=== PATIENT | female | born 1935 | race Caucasian/White ===

== ENCOUNTER → 2021-06-02 13:01 | Outpatient (CLI) | payer MEDICARE, OTHER, SELFPAY ==
--- NOTE | ~2021-06-02 | MR_ITS ---
EXAMINATION: MR lumbar spine wo con DATE: 06/02/2021 13:45 INDICATION: Low back pain TECHNIQUE: Magnetic resonance imaging (MRI) of the lumbar spine was performed without intravenous con trast. Sequences included sagittal T2-weighted FSE, sagittal T2-weighted FS FSE, sagittal T1-weighted FSE, and axial T2-weighted FSE. 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 12 degree lumbar dextroscoliosis. There is approximately 7 mm right l ateral listhesis and 2 mm retrolisthesis of L3 on L4. Vertebral body heights are normal. Severe disc height loss with fibrovascular degenerative endplate changes at L2-L3 and L3-L4. Disc desiccation and mild disc height loss at T11-T12 and T12-L1. Additional mild disc height loss at L4-L5. L5-S1 disc s pace is likely developmentally small with normal signal. 7 mm low signal intensity likely bone island at L2. Marrow signal is otherwise unremarkable. The conus medullaris terminates at the cephalad aspe ct of L2. There is normal signal in the caudal spinal cord. Paravertebral soft tissues are unremarkab le. The following disc levels are specifically discussed: T11-T12: The disc does not extend beyond the endplate margin. There is mild left and moderate right f acet joint osteoarthritis. There is no neural foraminal stenosis. There is no central canal stenosis. T12-L1: The disc does not extend beyond the endplate margin. There is altered left and moderate right facet joint osteoarthritis. There is no neural foraminal stenosis. There is no central canal stenosi s. L1-L2: Mild diffuse disc bulge There is moderate bilateral facet joint osteoarthritis. There is mild left neural foraminal stenosis. There is mild central canal stenosis. L2-L3: Disc is bulging. There is moderate left and severe right facet joint osteoarthritis. There is mild right and moderate left neural foraminal stenosis. There is moderate central canal stenosis. L3-L4: Disc is bulging. There is hypertrophy of the ligamentum flavum. There is mild to moderate lef t and moderate right facet joint osteoarthritis. There is moderate bilateral neural foraminal stenosi s. There is mild central canal stenosis. L4-L5: Disc is mildly bulging. There is hypertrophy of the ligamentum flavum. There is severe bilate ral facet joint osteoarthritis. There is mild bilateral neural foraminal stenosis. There is mild cent ral canal stenosis. L5-S1: The disc does not extend beyond the endplate margin. There is mild to moderate bilateral facet joint osteoarthritis. There is no neural foraminal stenosis. There is no central canal stenosis. IMPRESSION: 1. Transitional thoracolumbar and lumbosacral segments as detailed above. 2. Mild lumbar dextroscoliosis with severe spondylosis. Reviewed, dictated and finalized at location A.
== END ==
PROVIDERS: Visit Provider Nurse Practitioner Family
DX: M54.59 Other low back pain (principal); M47.816 Spondylosis without myelopathy or radiculopathy, lumbar region; M41.86 Other forms of scoliosis, lumbar region; Q76.49 Other congenital malformations of spine, not associated with scoliosis
CPT/HCPCS: 72148

== ENCOUNTER → 2021-07-21 10:06 | Outpatient (CLI) | payer MEDICARE, OTHER, SELFPAY ==
--- NOTE | ~2021-07-21 | CT_ITS ---
EXAMINATION: CT lumbar spine wo con DATE: 07/21/2021 10:20 INDICATION: Lumbar stenosis with neurogenic claudication. TECHNIQUE: Computed tomography (CT) of the lumbar spine was performed without intravenous contrast. A utomated exposure control and iterative reconstruction technique were employed. The dose-length produ ct was 374.77 mGy-cm. COMPARISON: Lumbar spine MRI 06/02/2021 FINDINGS: There is 13 degrees dextroscoliosis of lumbar spine. L5 is a transitional segment. There is 2 mm retrolisthesis of L3 on L4. Vertebral body heights are normal. There is a benign bone island in L2 vertebral body. There is mildly decreased disc height at T12-L1 and severely decreased disc heigh t from L2-L3 through L4-L5 with endplate remodeling. The following disc levels are specifically discu ssed: L1-L2: The disc is bulging. There is severe bilateral facet joint osteoarthritis. There is mild bilat eral neural foraminal stenosis. There is mild central canal stenosis. L2-L3: The disc is bulging. There is severe right and moderate left facet joint osteoarthritis. There is mild bilateral neural foraminal stenosis. There is mild central canal stenosis. L3-L4: The disc is bulging. There is severe right and moderate left facet joint osteoarthritis. There is mild bilateral neural foraminal stenosis. There is mild central canal stenosis. L4-L5: The disc is bulging. There is severe bilateral facet joint osteoarthritis. There is mild bilat eral neural foraminal stenosis. There is mild central canal stenosis. L5-S1: The disc does not extend beyond the endplate margin. There is no facet joint osteoarthritis. T here is no neural foraminal stenosis. There is no central canal stenosis. IMPRESSION: 1. Severe lumbar spondylosis, stable from 06/02/2021. 2. Lumbar levoscoliosis. Reviewed, dictated and finalized at location E.
== END ==
PROVIDERS: Visit Provider Neurological Surgery
DX: M47.817 Spondylosis without myelopathy or radiculopathy, lumbosacral region (principal); M48.07 Spinal stenosis, lumbosacral region; M41.9 Scoliosis, unspecified
CPT/HCPCS: 72131

== ENCOUNTER 2024-10-05 13:58 | Outpatient (CLI) | payer MEDICARE, OTHER, SELFPAY ==
--- NOTE | ~2024-10-05 | XR_ITS ---
EXAM/ PROCEDURE: XR hip RT min 2V - 10/05/2024 14:11 CDT HISTORY: 89 years old Female with RT hip pain COMPARISON: None available TECHNIQUE: Three view(s) FINDINGS/ IMPRESSION: There are no fractures or dislocations.Joint space narrowing, subchondral sclerosis, subchondral cyst formation and osteophyte formation, compatible with moderate osteoarthritis. Reviewed, dictated and finalized at location A.
== END 2024-10-05 13:59 | disposition home or self-care (01) ==
PROVIDERS: Visit Provider Physician Assistant
DX: M25.551 Pain in right hip (principal)
CPT/HCPCS: 73502